=== PATIENT | female | born 1985 | race Caucasian/White ===

== ENCOUNTER 2019-02-01 11:38 | Observation (INO) ==
[2019-02-01] MEDS ORDERED: NORMAL SALINE 1,000 ML IV ONE (12:06)
--- NOTE | 2019-02-01 12:08 | ERNOTE ---
Chest Pain/Cardiac HPI Date of Service: 02/01/19 Chief Complaint: Palpitations Time Seen by Provider: 02/01/19 11:42 Source: patient, RN notes reviewed, past records Exam Limitations: no limitations Immunizations: IMMUNIZATION HX Immunizations Up to Date Yes History of Influenza Vaccine Yes Hx Pneumococcal Vaccination No Allergies/Adverse Reactions: Allergies No Known Allergies Allergy (Verified 02/01/19 11:54) Home Medications: HOME MEDICATIONS Calcium Carbonate [Tums] 500 mg PO DAILY 08/08/18 [Last Taken 01/22/19] vitamin,calcium,vvakxpwz-ddvr-fpkwa acid tablet 1 tab PO DAILY 08/09/18 [Last Taken 01/23/19 21:00] ferrous sulfate 325 mg (65 mg iron) tablet,delayed release 325 mg PO DAILY #30 tab 01/01/19 [Last Taken 01/21/19 21:00] progesterone micronized 100 mg vaginal insert 2 insert VG ONCE ea 01/01/19 [Last Taken 01/23/19 21:00] ascorbic acid (vitamin C) 500 mg capsule 500 mg PO DAILY cap 01/15/19 [Last Taken 01/21/19 21:00] docusate sodium 100 mg capsule 100 mg PO DAILY PRN 01/15/19 [Last Taken 01/21/19 21:00] Narrative: Luciana is a 33 year old female who presents to the ED for palpitations that began yesterday. She is 31 weeks . She is also having contractions. This began last week. She has been evaluated in OB for the contractions, but she reports that they became more frequent while she was on her way here. Her FHT's in triage were 145. The palpitations were fairly constant yesterday but they did not keep her awake last night. They are somewhat less frequent today. She denies any additional symptoms. Date (Duration): 01/31/19 Timing: intermittent Activities at Onset: rest Modifying Factors - Improves: Present: nothing. Absent: eating, exercise, rest Modifying Factors - Worsens: Present: nothing. Absent: breathing, exercise, position, movement, rest Associated Symptoms: Absent: headache, cough, shortness of breath, fever/chills, nausea, vomiting Prior Treatment: Reports: recently seen - by OB Review of Systems - Review of Systems Constitutional: Absent: recent illness, fever, chills, malaise EYE: Present: no symptoms reported ENT: Absent: nose congestion, sore throat Respiratory: Absent: shortness of breath, cough Cardiology: Present: palpitations. Absent: chest pain, syncope, edema Gastrointestinal/Abdominal: Absent: nausea, vomiting, diarrhea, eating less, drinking less Genitourinary: Absent: dysuria, discharge Musculoskeletal: Absent: muscle pain, joint pain Skin: Absent: rash, lesions Neurological: Absent: headache, dizziness/light-headedness Endocrine: Present: no symptoms reported Hematologic/Lymphatic: Absent: easy bruising, easy bleeding Psych: Absent: anxiety Medical History (Last Reviewed 02/01/19 @ 12:52 by Kelly العلي NP) BMI 38.0-38.9,adult (Chronic) Elevated blood pressure reading in office without diagnosis of hypertension (Acute) Asthma (Acute) Advanced maternal age affecting , antepartum Onset Date: 08/09/18 Anemia Onset Date: 01/01/19 w/ Asthma Onset Date: Unknown No hospitalizations Body piercing Onset Date: Unknown Cholelithiasis Onset Date: ~2017 Obesity Onset Date: Unknown Tattoos Onset Date: Unknown Bicipital tenosynovitis Onset Date: 08/08/17 Right shoulder Cervical dysplasia Onset Date: Unknown Elective Onset Date: ~2001 Surgical History: Surgical History (Last Reviewed 02/01/19 @ 12:52 by Kelly العلي NP) Previous section (Chronic) Hx of section Onset Date: 06/15/082007-Failure to descend. Non-reassuring tracing. Hx of cone biopsy of cervix Onset Date: Unknown Family History: Family History (Last Reviewed 02/01/19 @ 12:52 by Kelly العلي NP) Mother Melanoma Cancer Breast Father Hypertension Grandfather CVA (cerebral vascular accident) w/complications Grandfather Parkinson's disease Grandmother CHF (congestive heart failure) Social History: Preferred Language Afghan Do you have any taoist or Yes: baptist cultural preference? Smoking Status Never smoker Have you smoked in the past 12 No months Do you dip or chew tobacco No Alcohol Use none Drug Use none (Last Updated 01/29/19 @ 09:46 by Rodríguez Castelan DO) No Social History Section defined Physical Exam - Physical Exam General Appearance: Present: alert, no apparent distress, obese, other - Pleasant, talkative, appropriately dressed and groomed Head Exam: Present: normal inspection Eye Exam: Normal inspection: bilateral Ears, Nose, Throat: Present: normal ENT inspection, normal pharynx Neck: Present: normal inspection, nontender, supple. Absent: thyromegaly Respiratory: Present: no respiratory distress, normal breath sounds, no accessory muscle use, chest nontender, lungs clear Cardiovascular/Chest: Present: no murmur, normal peripheral pulses, tachycardia Gastrointestinal/Abdominal: Present: nontender, soft, distended - Gravid uterus Extremity Exam: Present: normal inspection, normal range of motion, no edema Neurological Exam: Present: alert, oriented, normal mood/affect, no motor/sensory deficits Skin Exam: Present: normal color, warm/dry Progress - Results and Orders Patient's Lab Results:: I have reviewed the patient's lab results. - Vital Signs Patient's Vital Signs:: I have reviewed the patient's vital signs. Vital Signs: Vital Signs 02/01/19 11:48 Temperature 37.2 C Pulse Rate 105 H Respiratory Rate 16 Blood Pressure 138/86 O2 Sat by Pulse Oximetry 98 - EKG EKG #1 EKG: NSR EKG read: Reviewed by me - Progress/Reassessment Chief Complaint: Palpitations Progress:: Improved Plan - Plan Plan: Heart rate has improved from 100 to 110's into 90's with a liter of IV NS. The patient continues to have mild palpitations. She still feels that her contractions are more frequent than what they had been for the past week. Dr. Castelan was contacted. The patient will be evaluated in the OB department after leaving the ED d/t her ongoing contractions and already thin cervix. Her urine did show 2+ bacteria but the specimen also contained epithelial cells. She denies any urinary symptoms and has not had any recent urinary tract infections. Treatment for this will be deferred pending culture results. Departure Clinical Impression: Palpitations - Departure Disposition: Still a patient Condition: Stable Instructions: Palpitations, [id number], Form - Excuse from Work, School, or Physical Activity Additional Instructions: Increase fluid intake Avoid caffeine, cold medications, etc. Contact your OB for any new/worsening symptoms Referrals: Rodríguez Castelan DO [Staff Physician] -
[2019-02-01 12:25] LABS: Hematocrit 31.9 % (37.0-47.0); Hemoglobin 10.2 gm/dL (12.5-16.0); Mean Cell Volume 89.9 fl (78-100); Mean Corpuscular Hemoglobin 28.7 pg (27-31); Mean Platelet Volume 10.6 fl (8-12.5); Neutrophil # 10.3 K/mm3 (1.3-6.0); Neutrophil % 79.7 % (42-75.0); Platelet Count 282 K/mm3 (150-450); Red Blood Count 3.55 M/mm3 (4.2-5.4); Red Cell Distribution Width 14.3 % (11.5-14.0)
[2019-02-01 12:36] LABS: Urine Appearance Slightly Cloudy (CLEAR); Urine Bilirubin Negative (NEGATIVE); Urine Blood Negative /ul (NEGATIVE); Urine Color Yellow; Urine Ketone Negative (NEGATIVE); Urine Nitrite Negative (NEGATIVE); Urine Protein Negative (NEGATIVE); Urine Specific Gravity 1.025 SP.GR. (1.005-1.010); Urine Urobilinogen Normal (NORMAL)
[2019-02-01 12:37] LABS: Urine Amorphous Sediment Moderate - 2+ (NONE-FEW); Urine Bacteria 2+; Urine RBC 0-5 /hpf (0-5)
[2019-02-01 12:43] LABS: Albumin * 2.5 gm/dl (3.4-5.0); Anion Gap 16.7 mmol/L (6.8-13.8); BUN/Creatinine Ratio 8.5 (9.0-21.6); Bilirubin, Total 0.2 mg/dL (0.0-1.1); Ca. Corrected For Albumin 9.4 mg/dL (8.4-10.2); Calcium * 8.5 mg/dL (7.9-10.9); Carbon Dioxide 20.8 mmol/L (24-32.6); Potassium 3.5 mmol/L (3.4-4.6); T4 Free * 0.72 ng/dL (0.76-1.46); TSH * 2.418 uIU/mL (0.358-3.74); Total Protein 6.4 gm/dL (6.2-8.2)
--- NOTE | 2019-02-01 16:39 | HP ---
Chief Complaint - Chief Complaint Date of Service: 02/01/19 Time of Service: 16:30 Chief Complaint: contractions History of Present Illness: The patient reports contractions that are worsening. She denies vaginal bleeding or loss of fluid. Fetus is active. Medical History (Last Reviewed 02/01/19 @ 12:52 by Kelly العلي NP) BMI 38.0-38.9,adult (Chronic) Elevated blood pressure reading in office without diagnosis of hypertension (Acute) Asthma (Acute) Advanced maternal age affecting , antepartum Onset Date: 08/09/18 Anemia Onset Date: 01/01/19 w/ Asthma Onset Date: Unknown No hospitalizations Body piercing Onset Date: Unknown Cholelithiasis Onset Date: ~2017 Obesity Onset Date: Unknown Tattoos Onset Date: Unknown Bicipital tenosynovitis Onset Date: 08/08/17 Right shoulder Cervical dysplasia Onset Date: Unknown Elective Onset Date: ~2001 Surgical History: Surgical History (Last Reviewed 02/01/19 @ 12:52 by Kelly العلي NP) Previous section (Chronic) Hx of section Onset Date: 06/15/082007-Failure to descend. Non-reassuring tracing. Hx of cone biopsy of cervix Onset Date: Unknown Family History: Family History (Last Reviewed 02/01/19 @ 12:52 by Kelly العلي NP) Mother Melanoma Cancer Breast Father Hypertension Grandfather CVA (cerebral vascular accident) w/complications Grandfather Parkinson's disease Grandmother CHF (congestive heart failure) Social History: Preferred Language Uzbek Do you have any anglican or Yes: yazdanism cultural preference? Smoking Status Never smoker Have you smoked in the past 12 No months Do you dip or chew tobacco No Alcohol Use none Drug Use none (Last Updated 01/29/19 @ 09:46 by Rodríguez Castelan DO) No Social History Section defined Review Of Systems (GEN) - Review of Systems Generalized/Overall Review: Present: No Symptoms Reported Misc: All systems neg except as marked Immunizations: IMMUNIZATION HX Immunizations Up to Date Yes History of Influenza Vaccine Yes Hx Pneumococcal Vaccination No Allergies/Adverse Reactions: Allergies Allergy/AdvReac Type Severity Reaction Status Date / Time No Known Allergies Allergy Verified 02/01/19 11:54 Home Medications: HOME MEDICATIONS Calcium Carbonate [Tums] 500 mg PO DAILY 10/09/18 [Last Taken 01/22/19] vitamin,calcium,qvruuqar-dqpu-ixmim acid tablet 1 tab PO DAILY 08/09/18 [Last Taken 01/23/19 21:00] ferrous sulfate 325 mg (65 mg iron) tablet,delayed release 325 mg PO DAILY #30 tab 01/01/19 [Last Taken 01/21/19 21:00] progesterone micronized 100 mg vaginal insert 2 insert VG ONCE ea 01/01/19 [Last Taken 01/23/19 21:00] ascorbic acid (vitamin C) 500 mg capsule 500 mg PO DAILY cap 01/15/19 [Last Taken 01/21/19 21:00] docusate sodium 100 mg capsule 100 mg PO DAILY PRN 01/15/19 [Last Taken 01/21/19 21:00] Exam - Exam Vital Signs: Vital Signs - Last Taken Temp 36.6 C 02/01/19 15:19 Pulse 101 H 02/01/19 15:19 Resp 16 02/01/19 15:19 BP 137/70 02/01/19 15:19 Pulse Ox 98 02/01/19 15:19 Constitutional: Present: Alert, Oriented x3, Cooperative, No distress Respiratory: Present: lungs clear, normal breath sounds Cardiovascular/Chest: Present: no murmur, other - irregular Abdomen: Present: soft, nontender, nondistended Extremity: Present: non-tender, no calf tenderness Skin Exam: Present: normal color, warm/dry, no cyanosis Appearance: Present: appropriate appearance Eye contact: Present: cooperative Thoughts: Present: normal thought pattern Diagnostic Studies: Abnormal Lab Results 02/01/19 02/01/19 02/01/19 Range/Units 12:15 12:15 12:31 WBC 13.0 H (4.0-10.5) K/mm3 RBC 3.55 L (4.2-5.4) M/mm3 Hgb 10.2 L (12.5-16.0) gm/dL Hct 31.9 L (37.0-47.0) % RDW 14.3 H (11.5-14.0) % Immature Gran % (Auto) 0.50 H (0.001-0.429) % Immature Gran # (Auto) 0.06 H (0.000-0.0310) K/mm3 Neutrophils % 79.7 H (42-75.0) % Lymphocytes % 14.4 L (20-51) % Neutrophils # 10.3 H (1.3-6.0) K/mm3 Carbon Dioxide 20.8 L (24-32.6) mmol/L Anion Gap 16.7 H (6.8-13.8) mmol/L Est GFR (Non-Af Amer) 160 H (60-130) mL/min BUN/Creatinine Ratio 8.5 L (9.0-21.6) Random Glucose 120 H (70-110) mg/dL Albumin 2.5 L (3.4-5.0) gm/dl Free T4 0.72 L (0.76-1.46) ng/dL Ur Leukocyte Esterase 25 H (NEGATIVE) /ul Urine WBC 5-10 H (0-5) /hpf Ur Epithelial Cells 5-10 H (0-5) /hpf Amorphous Sediment Moderate - 2+ H (NONE-FEW) Urine Bacteria 2+ H (NONE) Coarse Granular Casts 5-10 H (NONE) /LPF Laboratory Results WBC 13.0 K/mm3 (4.0-10.5) H 02/01/19 12:15 RBC 3.55 M/mm3 (4.2-5.4) L 02/01/19 12:15 Hgb 10.2 gm/dL (12.5-16.0) L 02/01/19 12:15 Hct 31.9 % (37.0-47.0) L 02/01/19 12:15 MCV 89.9 fl (78-100) 02/01/19 12:15 MCH 28.7 pg (27-31) 02/01/19 12:15 MCHC 32.0 g/dl (32-36) 02/01/19 12:15 RDW 14.3 % (11.5-14.0) H 02/01/19 12:15 Plt Count 282 K/mm3 (150-450) 02/01/19 12:15 MPV 10.6 fl (8-12.5) 02/01/19 12:15 Immature Gran % (Auto) 0.50 % (0.001-0.429) H 02/01/19 12:15 Immature Gran # (Auto) 0.06 K/mm3 (0.000-0.0310) H 02/01/19 12:15 Neutrophils % 79.7 % (42-75.0) H 02/01/19 12:15 Lymphocytes % 14.4 % (20-51) L 02/01/19 12:15 Monocytes % 3.6 % (0.0-9) 02/01/19 12:15 Eosinophils % 1.6 % (0.0-3.0) 02/01/19 12:15 Basophils % 0.2 % (0.0-1.0) 02/01/19 12:15 Nucleated RBC % 0.0 k/mm3 (0-1) 02/01/19 12:15 Neutrophils # 10.3 K/mm3 (1.3-6.0) H 02/01/19 12:15 Lymphocytes # 1.86 k/mm3 (1.5-3.5) 02/01/19 12:15 Monocytes # 0.5 k/mm3 (0.0-1.0) 02/01/19 12:15 Eosinophils # 0.2 k/mm3 (0.0-0.7) 02/01/19 12:15 Absolute Basophils 0.0 k/mm3 (0.0-0.1) 02/01/19 12:15 Sodium 138 mmol/L (132-142) 02/01/19 12:15 Plasma Sodium 138 mmol/L (130-142) 02/01/19 12:15 Potassium 3.5 mmol/L (3.4-4.6) 02/01/19 12:15 Chloride 104 mmol/L (97-106) 02/01/19 12:15 Carbon Dioxide 20.8 mmol/L (24-32.6) L 02/01/19 12:15 Anion Gap 16.7 mmol/L (6.8-13.8) H 02/01/19 12:15 BUN 4 mg/dL (3-23) 02/01/19 12:15 Creatinine 0.47 mg/dL (0.4-1.4) 02/01/19 12:15 Est GFR (Non-Af Amer) 160 mL/min (60-130) H 02/01/19 12:15 BUN/Creatinine Ratio 8.5 (9.0-21.6) L 02/01/19 12:15 Random Glucose 120 mg/dL (70-110) H 02/01/19 12:15 Calcium 8.5 mg/dL (7.9-10.9) 02/01/19 12:15 Calcium Adj for Albumin 9.4 mg/dL (8.4-10.2) 02/01/19 12:15 Total Bilirubin 0.2 mg/dL (0.0-1.1) 02/01/19 12:15 AST 12 U/L (0-48) 02/01/19 12:15 ALT 21 U/L (19-67) 02/01/19 12:15 Alkaline Phosphatase 89 U/L (50-170) 02/01/19 12:15 Total Protein 6.4 gm/dL (6.2-8.2) 02/01/19 12:15 Albumin 2.5 gm/dl (3.4-5.0) L 02/01/19 12:15 TSH 2.418 uIU/mL (0.358-3.74) 02/01/19 12:15 Free T4 0.72 ng/dL (0.76-1.46) L 02/01/19 12:15 Urine Color Yellow 02/01/19 12:31 Urine Appearance Slightly cloudy (CLEAR) 02/01/19 12:31 Urine pH 6.0 pH (5.0-7.0) 02/01/19 12:31 Ur Specific [place] 1.025 SP.GR. (1.005-1.010) 02/01/19 12:31 Urine Protein Negative mg/dL (NEGATIVE) 02/01/19 12:31 Urine Glucose (UA) Negative mg/dL (NEGATIVE) 02/01/19 12:31 Urine Ketones Negative mg/dL (NEGATIVE) 02/01/19 12:31 Urine Blood Negative /ul (NEGATIVE) 02/01/19 12:31 Urine Nitrate Negative (NEGATIVE) 02/01/19 12:31 Urine Bilirubin Negative mg/dl (NEGATIVE) 02/01/19 12:31 Urine Urobilinogen Normal EU/dl (NORMAL) 02/01/19 12:31 Ur Leukocyte Esterase 25 /ul (NEGATIVE) H 02/01/19 12:31 Urine RBC 0-5 /hpf (0-5) 02/01/19 12:31 Urine WBC 5-10 /hpf (0-5) H 02/01/19 12:31 Ur Epithelial Cells 5-10 /hpf (0-5) H 02/01/19 12:31 Amorphous Sediment Moderate - 2+ (NONE-FEW) H 02/01/19 12:31 Urine Bacteria 2+ (NONE) H 02/01/19 12:31 Coarse Granular Casts 5-10 /LPF (NONE) H 02/01/19 12:31 Urine Culture Comments Culture to follow 02/01/19 12:31 Assessment/Plan - Narrative Narrative: 33 yo @ 31w 2d She was evaluated by the emergency department for palpitations and had a normal EKG. The patient reports her contractions are becoming closer together so will transfer to [place].
--- NOTE | 2019-02-01 17:05 | DS ---
(1) contractions Problem: Acute Procedures Performed: none Results and Findings: Lab Pending Results 02/01/19 12:15: WBC 13.0 H, RBC 3.55 L, Hgb 10.2 L, Hct 31.9 L, MCV 89.9, MCH 28.7, MCHC 32.0, RDW 14.3 H, Plt Count 282, MPV 10.6, Immature Gran % (Auto) 0.5 0 H, Immature Gran # (Auto) 0.06 H, Neutrophils % 79.7 H, Lymphocytes % 14.4 L, Monocytes % 3.6, Eosinophils % 1.6, Basophils % 0.2, Nucleated RBC % 0.0, Neutrophils # 10.3 H, Lymphocytes # 1.86, Monocytes # 0.5, Eosinophils # 0.2, Absolute Basophils 0.0 02/01/19 12:15: Sodium 138, Plasma Sodium 138, Potassium 3.5, Chloride 104, Carbon Dioxide 20.8 L, Anion Gap 16.7 H, BUN 4, Creatinine 0.47, Est GFR (Non-Af Amer) 160 H, BUN/Creatinine Ratio 8.5 L, Random Glucose 120 H, Calcium 8.5, Calcium Adj for Albumin 9.4, Total Bilirubin 0.2, AST 12, ALT 21, Alkaline Phosphatase 89, Total Protein 6.4, Albumin 2.5 L, TSH 2.418, Free T4 0.72 L 02/01/19 12:31: Urine Color Yellow, Urine Appearance Slightly cloudy, Urine pH 6.0, Ur Specific [place] 1.025, Urine Protein Negative, Urine Glucose (UA) Negative, Urine Ketones Negative, Urine Blood Negative, Urine Nitrate Negative, Urine Bilirubin Negative, Urine Urobilinogen Normal, Ur Leukocyte Esterase 25 H, Urine RBC 0-5, Urine WBC 5-10 H, Ur Epithelial Cells 5-10 H, Amorphous Sediment Moderate - 2+ H, Urine Bacteria 2+ H, Coarse Granular Casts 5-10 H, Urine Culture Comments Culture to follow Discharge [facility]: [facility] Disposition: Short Term Hospital Inpatient Condition: Stable Discharge Activity: Activity as tolerated Discharge Diet: General/regular food Referrals: Rodríguez Castelan DO [Staff Physician] - Problem Oriented Discharge Instructions to Patient/Family: Palpitations, [id number], Form - Excuse from Work, School, or Physical Activity Additional Patient Instructions (free text): Increase fluid intake Avoid caffeine, cold medications, etc. Contact your OB for any new/worsening symptoms Complete Home Medications List: Complete Home Medication List: Calcium Carbonate [Tums] 500 mg PO DAILY 08/08/18 vitamin,calcium,bdlkugny-ccuv-byqrg acid tablet 1 tab PO DAILY 08/09/18 ferrous sulfate 325 mg (65 mg iron) tablet,delayed release 325 mg PO DAILY #30 tab 01/01/19 progesterone micronized 100 mg vaginal insert 2 insert VG ONCE ea 01/01/19 ascorbic acid (vitamin C) 500 mg capsule 500 mg PO DAILY cap 01/15/19 docusate sodium 100 mg capsule 100 mg PO DAILY PRN 01/15/19
[2019-02-01 17:11] VITALS: BP 140/59
[2019-02-01] MEDS ORDERED: NIFEdipine 10 MG CAPSULE PO ONE (17:15)
[2019-02-01] MEDS ORDERED: BETAMETHASONE ACETATE,SOD PHOS 6 MG/ML VIAL IM ONE (18:00)
== END 2019-02-01 18:15 | disposition home or self-care (01) ==
LOC: ER 11:38 → OB 14:03 → OBCLINIC 14:03
PROVIDERS: ADMIT Obstetrics & Gynecology; ATTEND Obstetrics & Gynecology
CPT/HCPCS: 36415; 59025; 80053; 81001; 84439; 84443; 85025; 87086; 93005; 96360; 99285; G0378

== ENCOUNTER 2019-03-05 21:30 | Inpatient (IN) ==
[2019-03-05] MEDS: RINGER'S SOLUTION,LACTATED 1,000 ML IV PRN ×2 (21:56→23:08)
[2019-03-05] MEDS ORDERED: OXYTOCIN 20 UNITS in RINGER'S SOLUTION,LACTATED 1,000 ML IV ONE (23:19)
--- NOTE | 2019-03-05 23:30 | HP ---
Chief Complaint - Chief Complaint Date of Service: 03/05/19 Time of Service: 23:23 Chief Complaint: contractions History of Present Illness: 34 yo at 35 6/7 wks presents to L&D complaining of increasing frequency and intensity of contractions this evening with increased vaginal pressure. This complicated by anemia, AMA, asthma, PTL, shortened and now dilated cervix, prior c/s, and morbid obesity. Patient received 2 courses of BTMZ, most recent one 02/01 - 02/02. Rh positive Rubella immune GBS negative. Medical History (Updated 03/01/19 @ 01:23 by Rodríguez Castelan DO) BMI 38.0-38.9,adult (Chronic) Elevated blood pressure reading in office without diagnosis of hypertension (Acute) Asthma (Chronic) Advanced maternal age affecting , antepartum Onset Date: 08/09/18 Anemia Onset Date: 01/01/19 w/ Asthma Onset Date: Unknown No hospitalizations Heart palpitations Onset Date: 01/2019 31 weeks preg Body piercing Onset Date: Unknown Cholelithiasis Onset Date: ~2017 Obesity Onset Date: Unknown Tattoos Onset Date: Unknown Bicipital tenosynovitis Onset Date: 08/08/17 Right shoulder Cervical dysplasia Onset Date: Unknown Elective Onset Date: ~2001 Surgical History: Surgical History (Updated 02/01/19 @ 17:05 by Sofia Smith MD) Previous section (Chronic) Hx of section Onset Date: 06/15/082007-Failure to descend. Non-reassuring tracing. Hx of cone biopsy of cervix Onset Date: Unknown Family History: Family History (Updated 08/09/18 @ 13:57 by Mckenna Gold RN) Mother Melanoma Cancer Breast Father Hypertension Grandfather CVA (cerebral vascular accident) w/complications Grandfather Parkinson's disease Grandmother CHF (congestive heart failure) Social History: Preferred Language Spanish Smoking Status Never smoker (Last Updated 03/05/19 @ 12:21 by Rodríguez Castelan DO) No Social History Section defined Review Of Systems (GEN) - Review of Systems Generalized/Overall Review: Present: No Symptoms Reported EENTM: Present: No Symptoms Reported Respiratory: Present: No Symptoms Reported Cardiac: Present: No Symptoms Reported Abdominal: Present: Other - contractions Genitourinary: Present: Other - vaginal pressure Musculoskeletal: Present: No Symptoms Reported Neurological: Present: No Symptoms Reported Skin: Present: No Symptoms Reported Endocrine: Present: No Symptoms Reported Immunizations: IMMUNIZATION HX Immunizations Up to Date Yes History of Influenza Vaccine Yes Hx Pneumococcal Vaccination No Allergies/Adverse Reactions: Allergies Allergy/AdvReac Type Severity Reaction Status Date / Time No Known Allergies Allergy Verified 03/05/19 22:01 Home Medications: HOME MEDICATIONS Calcium Carbonate [Tums] 500 mg PO DAILY 08/08/18 [Last Taken 02/16/19 20:00] vitamin,calcium,zsabjubr-oeqb-aqnne acid tablet 1 tab PO DAILY 08/09/18 [Last Taken 02/28/19 21:00] ferrous sulfate 325 mg (65 mg iron) tablet,delayed release 325 mg PO DAILY #30 tab 01/01/19 [Last Taken 02/27/19 08:00] progesterone micronized 100 mg vaginal insert 2 insert VG DAILY ea 01/01/19 [Last Taken 02/26/19 21:00] ascorbic acid (vitamin C) 500 mg capsule 500 mg PO DAILY cap 01/15/19 [Last Taken 02/27/19 08:00] docusate sodium 100 mg capsule 100 mg PO DAILY PRN 01/15/19 [Last Taken 01/21/19 21:00] Exam - Exam Vital Signs: Vital Signs - Last Taken Temp 36.7 C 03/05/19 22:23 Pulse 118 H 03/05/19 22:23 Resp 16 03/05/19 22:23 BP 140/83 H 03/05/19 22:23 Pulse Ox 98 03/05/19 22:23 Constitutional: Present: Alert, Oriented x3, Cooperative, Mild distress - due to pain of contractions ENT Exam: Present: hearing grossly normal Breasts: Present: Exam deferred Respiratory: Present: lungs clear, no respiratory distress Cardiovascular/Chest: Present: normal peripheral pulses, tachycardia Abdomen: Present: soft, nontender, no rebound tenderness, other - gravid /Rectal: Present: Other - 4/90/-2 Extremity: Present: no calf tenderness, lower extremity edema - 1+ Neurologic: Present: alert, normal mood/affect, oriented x 3 Appearance: Present: appropriate appearance, appropriate insight Eye contact: Present: cooperative, good eye contact Thoughts: Present: normal thought pattern Assessment/Plan - Assessment/Plan (1) labor in third trimester Assessment: Admit for Repeat LTCS with b/l salpingectomy. All questions answered. Will proceed with surgery once crew arrives. Problem: Acute Qualifiers: Fetus number: single or unspecified fetus (2) Advanced maternal age (AMA) in Problem: Acute (3) Anemia Problem: Acute Qualifiers: Anemia type: iron deficiency Iron deficiency anemia type: inadequate dietary iron intake Qualified Code(s): D50.8 - Other iron deficiency anemias (4) Morbid obesity Problem: Chronic (5) Asthma Problem: Chronic Qualifiers: Asthma severity: mild Asthma persistence: intermittent Asthma complication type: uncomplicated Qualified Code(s): J45.20 - Mild intermittent asthma, uncomplicated (6) Request for sterilization Problem: Acute (7) Previous section Problem: Chronic
--- NOTE | 2019-03-05 23:38 | ANES ---
Anesthesia Pre Procedure Eval Vitals/Labs: Last Vital Signs Temp 36.7 C 03/05/19 22:23 Pulse 118 H 03/05/19 22:23 Resp 16 03/05/19 22:23 BP 140/83 H 03/05/19 22:23 Pulse Ox 98 03/05/19 22:23 HOME MEDICATIONS Calcium Carbonate [Tums] 500 mg PO DAILY 08/08/18 [Last Taken 02/16/19 20:00] vitamin,calcium,wrxcioxj-qgzv-yrxhe acid tablet 1 tab PO DAILY 08/09/18 [Last Taken 02/28/19 21:00] ferrous sulfate 325 mg (65 mg iron) tablet,delayed release 325 mg PO DAILY #30 tab 01/01/19 [Last Taken 02/27/19 08:00] progesterone micronized 100 mg vaginal insert 2 insert VG DAILY ea 01/01/19 [Last Taken 02/26/19 21:00] ascorbic acid (vitamin C) 500 mg capsule 500 mg PO DAILY cap 01/15/19 [Last Taken 02/27/19 08:00] docusate sodium 100 mg capsule 100 mg PO DAILY PRN 01/15/19 [Last Taken 01/21/19 21:00] Allergies/Adverse Reactions: Allergies Allergy/AdvReac Type Severity Reaction Status Date / Time No Known Allergies Allergy Verified 03/05/19 22:01 - Planned Procedure Planned Procedure: C/S Medication List Reviewed:: Yes Allergies Verified: Yes Medical History (Updated 03/05/19 @ 23:30 by Rodríguez Castelan DO) BMI 38.0-38.9,adult (Chronic) Elevated blood pressure reading in office without diagnosis of hypertension (Acute) Asthma (Chronic) Advanced maternal age affecting , antepartum Onset Date: 08/09/18 Anemia Onset Date: 01/01/19 w/ Asthma Onset Date: Unknown No hospitalizations Heart palpitations Onset Date: 01/2019 31 weeks preg Body piercing Onset Date: Unknown Cholelithiasis Onset Date: ~2017 Obesity Onset Date: Unknown Tattoos Onset Date: Unknown Bicipital tenosynovitis Onset Date: 08/08/17 Right shoulder Cervical dysplasia Onset Date: Unknown Elective Onset Date: ~2001 Surgical History (Updated 02/01/19 @ 17:05 by Sofia Smith MD) Previous section (Chronic) Hx of section Onset Date: 06/15/082007-Failure to descend. Non-reassuring tracing. Hx of cone biopsy of cervix Onset Date: Unknown Family History (Updated 08/09/18 @ 13:57 by Mckenna Gold RN) Mother Melanoma Cancer Breast Father Hypertension Grandfather CVA (cerebral vascular accident) w/complications Grandfather Parkinson's disease Grandmother CHF (congestive heart failure) - Family Anesthesia History Family History:: no untoward family reactions to anesthesia, no familial bleeding tendencies, no family history of clotting disorders, no family history of premature - Airway/Neck/Teeth Within Normal Limits:: Yes Teeth Condition: intact Mallampatti Score: 2 Thyromental (T-M) distance: > 6 cm Mandibulo Hyoid distance: > 3 cm - Respiratory Respiratory History: asthma Respiratory Physical: lungs clear Smoking Status: Never smoker Discussed smoking cessation including day of surgery: No Sleep Apnea currently treated: No Sleep Apnea by current assessment: No Discussed Risks/Treatment of SHANIA: No - Cardiovascular Tolerate Activity: Good Heart Sounds: S1 & S2, Regular - Anesthesia Assessment and Plan ASA Class: PS, II, E Anesthesia Type Plan: Block - Bilateral TAP blocks for postop analgesia, Spinal
[2019-03-05] MEDS ORDERED: ceFAZolin SODIUM/DEXTROSE,ISO 2 GM/50 ML BAG IV ONE (23:45)
[2019-03-06] MEDS: RINGER'S SOLUTION,LACTATED 1,000 ML IV PRN (00:30)
[2019-03-06] MEDS ORDERED: SENNOSIDES 8.6 MG TABLET PO PRN (01:54)
[2019-03-06] MEDS ORDERED: SIMETHICONE 80 MG TAB.CHEW PO PRN (01:54)
[2019-03-06] MEDS ORDERED: BISACODYL 10 MG SUPP.RECT RC PRN (01:54)
[2019-03-06] MEDS ORDERED: ONDANSETRON HCL/PF 2 MG/ML VIAL IV PRN (01:54)
[2019-03-06] MEDS ORDERED: DOCUSATE SODIUM 100 MG CAPSULE PO PRN (01:55)
--- NOTE | 2019-03-06 02:02 | ANES ---
Post Anesthesia Discharge - Transfer of Care Transfer of Care handoff given to nurse: Yes - Discharge from PACU Discharge from PACU when meets criteria: Yes - Discharge to ASU Discharge to ASU-no complications/pt stable: Yes
--- NOTE | 2019-03-06 02:03 | OR ---
Operative Report - Dictated Report Narrative: Indication: 34 year old 3 para 1 at 36 weeks gestation age and prior section presents to labor and delivery in labor. status: Planned Pre Operative Diagnosis: 36 week intrauterine . Prior section. Morbid obesity. Desires permanent sterilization via bilateral salpingectomy. Post Operative Diagnosis: Same. Procedure: Repeat low transverse section. Bilateral salpingectomy Surgeon: Sadiq Castelan DO Film Laboratory Technician: OR Staff Anesthesia: Spinal, TAP block Estimated Blood Loss: 400 mL Urine Output: 200 mL clear urine Fluids Replacement: 2000 mL of crystalloid Drains: Delgadillo to gravity Surgical Complications: None Specimens: Placenta to pathology Findings: Male born at 0030 on 03/06/2021 with Apgars 3, 7, 7, weighing 3071 g in cephalic presentation. Normal uterus, tubes, ovaries Technique: The patient was taken to the operating room and placed in dorsal supine position with a left lateral tilt. After adequate spinal anesthesia, delgadillo catheter inserted, SCDs placed, and 2 g of Ancef given preoperatively, the abdominal cavity was entered using sharp and blunt dissection. Two rolled laps were placed in the pericolic gutters on either side of the uterus. A transverse incision was made in the lower uterine segment and extended laterally and upwardly with digital traction. Clear fluid was noted upon amniotomy. The infant was delivered easily. The cord was clamped and cut and infant was handed off to awaiting manager ccu. The placenta was allowed to deliver spontaneously. The uterus was cleared of clot and debris. Uterine incision was closed with 0 Vicryl using a running stitch. A second imbricating layer was placed. Excellent hemostasis was noted. The rolled laps were removed from the abdominal cavitiy. The right fallopian tube was identified and followed out to the fimbriated end. The mesosalpinx and proximal end of the fallopian tube approximately 2 cm from the cornual region were coagulated with bipolar forceps, transected and the tube was removed. The exact same was done on the patient's left side. However, the distal end of the fallopian tube was adherent to the uterine sidewall deep in the pelvis. A deep vascular branch of the mesosalpinx was bleeding this area was grasped with a Margot Guillermo stitch tied. Excellent hemostasis was noted. The peritoneum was closed with a running 3-0 Monocryl. The same suture was used to approximate the rectus and pyramidalis muscles. The fascia was closed with a running 0 Vicryl. The subcutaneous layer was closed with a running 3-0 Monocryl. The same suture was used to approximate the subdermal layer. The skin was closed with a running 4-0 Monocryl and Dermabond. Sponge, lap, needle, and instrument count were correct x 2. Disposition: To post anesthesia care unit in good condition History for MU Definition: * The number of deliveries resulting in a live the patient experienced prior to current hospitalization * The previous delivery of live twins or any live multiple gestation is considered one live event. *If primagravida or nulliparous is documented select zero for the number of previous live births. Live Events: 1
--- NOTE | 2019-03-06 02:05 | ANES ---
Post Anesthesia Assessment - Vital Signs Vitals: Last Vital Signs Temp 36.9 C 03/06/19 02:00 Pulse 102 H 03/06/19 02:00 Resp 20 03/06/19 02:00 BP 125/61 03/06/19 02:00 Pulse Ox 97 03/06/19 02:00 Airway Patency: Normal - Mental Status Level Of Consciousness: Awake - Pain Level Pain Score: 7 - N/V Assessment Nausea/Vomiting Presence: None Dehydration:: No
--- NOTE | 2019-03-06 02:05 | ANES ---
Anesthesia Procedure Note Procedure Note: ANESTHESIA PROCEDURE NOTE Date of Procedure: 03/06/2019. Time of procedure: 0150. Performed by: Wyatt Connors CRNA Gas Welding Machine Operator: None. Preprocedure diagnosis: Repeat . Post procedure diagnosis: Same. Procedure: Bilateral ultrasound-guided transversus abdominis plane block for postop analgesia. Indications: The patient is a 34 -year-old female post section. Findings: See below. Details of the procedure: ChloraPrep was used on the patient's abdomen and the procedure was performed under sterile technique. The right abdominal fascial layer between the internal oblique muscle and the transversus abdominis muscles was identified under ultrasound guidance. A 21-gauge 4 inch block needle was inserted under ultrasound guidance to the target fascial plane. 15 mL's of 0.5% bupivacaine plus epinephrine 1:200,000 was injected after negative aspiration for blood. The needle was removed intact and the procedure was then repeated at the left side. No complications were noted. The images were retained in the hospital medical database . EBL: Minimal. Fluids: N/A. Specimen: N/A. Post procedure condition: The patient tolerated the procedure well. No complications were noted. Thank you for this consultation. Wyatt Connors CRNA
[2019-03-06] MEDS: oxyCODONE HCL/ACETAMINOPHEN 1 TAB TABLET PO PRN ×5 (02:20→22:44)
[2019-03-06] MEDS: IBUPROFEN 800 MG TABLET PO PRN ×4 (03:24→22:44)
[2019-03-06 05:44] LABS: Cocaine Ur Negative (NEGATIVE); Urine Barbiturate Negative (NEGATIVE); Urine Benzodiazepines Negative (NEGATIVE); Urine Opiates Negative (NEGATIVE); Urine PCP Negative (NEGATIVE); Urine THC Negative (NEGATIVE)
[2019-03-06] MEDS: PRENATAL VITS96/IRON FUM/FOLIC 1 TAB TABLET PO SCH (09:44)
[2019-03-06] MEDS: DOCUSATE SODIUM 100 MG CAPSULE PO SCH ×2 (09:44→19:46)
[2019-03-06] MEDS: FERROUS SULFATE 325 MG TABLET PO SCH (09:44)
[2019-03-06] MEDS: ASCORBIC ACID 500 MG TABLET PO SCH (09:46)
[2019-03-06] MEDS: ENOXAPARIN SODIUM 40 MG/0.4 ML SYRG SC SCH (09:47)
[2019-03-06] MEDS: CALCIUM CARBONATE 500 MG TAB.CHEW PO SCH (09:51)
[2019-03-07] MEDS: DOCUSATE SODIUM 100 MG CAPSULE PO SCH ×3 (02:10→20:39)
[2019-03-07] MEDS: oxyCODONE HCL/ACETAMINOPHEN 1 TAB TABLET PO PRN ×5 (02:11→23:55)
[2019-03-07] MEDS: IBUPROFEN 800 MG TABLET PO PRN ×3 (06:42→20:39)
[2019-03-07] MEDS: CALCIUM CARBONATE 500 MG TAB.CHEW PO SCH (09:00)
[2019-03-07] MEDS: ASCORBIC ACID 500 MG TABLET PO SCH (09:21)
[2019-03-07] MEDS: PRENATAL VITS96/IRON FUM/FOLIC 1 TAB TABLET PO SCH (09:21)
[2019-03-07] MEDS: FERROUS SULFATE 325 MG TABLET PO SCH (09:21)
[2019-03-07] MEDS: ENOXAPARIN SODIUM 40 MG/0.4 ML SYRG SC SCH (09:21)
--- NOTE | 2019-03-07 10:21 | PN ---
Subjective - Date and Time Seen Date: 03/07/19 Time: 10:19 Objective - Vitals Vitals: Last Vital Signs Temp 36.1 C 03/07/19 06:55 Pulse 84 03/07/19 06:55 Resp 18 03/07/19 06:55 BP 112/56 03/07/19 06:55 Pulse Ox 99 03/07/19 06:55 Patient denies complaints. Ambulating fairly well. Tolerating regular diet. Pain well controlled. Lochia wnl. Abdomen - soft, appropriately tender Incision - clean, dry, intact Uterus - firm, at umbilicus -2 No calf tenderness Impression: Post op day #2 s/p repeat section. Plan: Continue routine post-operative/ care. Increase activity today. Cauti Physician Documentation - Urinary Catheter Management Urethral (Porter) Date of Insertion: 03/06/19 Time of Insertion: 00:18 Date of Removal: 03/06/19 Time of Removal: 13:00 Assessment/Plan - Problems/Diagnosis (1) labor in third trimester Problem: Acute Qualifiers: Fetus number: single or unspecified fetus (2) Advanced maternal age (AMA) in Problem: Acute (3) Anemia Problem: Acute Qualifiers: Anemia type: iron deficiency Iron deficiency anemia type: inadequate dietary iron intake Qualified Code(s): D50.8 - Other iron deficiency anemias (4) Morbid obesity Problem: Chronic (5) Asthma Problem: Chronic Qualifiers: Asthma severity: mild Asthma persistence: intermittent Asthma complication type: uncomplicated Qualified Code(s): J45.20 - Mild intermittent asthma, uncomplicated (6) Request for sterilization Problem: Acute (7) Previous section Problem: Chronic
[2019-03-08] MEDS: IBUPROFEN 800 MG TABLET PO PRN (05:23)
[2019-03-08 08:31] VITALS: BP 148/69
[2019-03-08] MEDS: ASCORBIC ACID 500 MG TABLET PO SCH (09:04)
[2019-03-08] MEDS: FERROUS SULFATE 325 MG TABLET PO SCH (09:04)
[2019-03-08] MEDS: PRENATAL VITS96/IRON FUM/FOLIC 1 TAB TABLET PO SCH (09:04)
[2019-03-08] MEDS: ENOXAPARIN SODIUM 40 MG/0.4 ML SYRG SC SCH (09:04)
[2019-03-08] MEDS: DOCUSATE SODIUM 100 MG CAPSULE PO SCH (09:04)
[2019-03-08] MEDS: CALCIUM CARBONATE 500 MG TAB.CHEW PO SCH (09:05)
--- NOTE | 2019-03-08 09:16 | PN ---
Subjective - Date and Time Seen Date: 03/08/19 Time: 09:14 Objective - Vitals Vitals: Last Vital Signs Temp 36.3 C 03/08/19 07:40 Pulse 86 03/08/19 07:40 Resp 18 03/08/19 07:40 BP 148/69 H 03/08/19 08:30 Pulse Ox 97 03/08/19 07:40 Patient denies complaints. Ambulating well. Tolerating regular diet. Pain well controlled. Denies headache, visual changes, or epigastric pain Lochia wnl. DTR-2/4, no clonus, minimal pedal edema Abdomen - soft, appropriately tender Incision - clean, dry, intact Uterus - firm, at umbilicus -2 No calf tenderness Impression: Post op day #2 s/p repeat section. Bilateral salpingectomy. Elevated blood pressures without symptoms of preeclampsia. Plan: Continue routine post-operative/ care. Early discharge home today due to baby transferred to [facility]. Preeclampsia precautions. Follow-up blood pressure check and none 3-4 days. Cauti Physician Documentation - Urinary Catheter Management Urethral (Porter) Date of Insertion: 03/06/19 Time of Insertion: 00:18 Date of Removal: 03/06/19 Time of Removal: 13:00 Assessment/Plan - Problems/Diagnosis (1) labor in third trimester Problem: Acute Qualifiers: Fetus number: single or unspecified fetus (2) Advanced maternal age (AMA) in Problem: Acute (3) Anemia Problem: Acute Qualifiers: Anemia type: iron deficiency Iron deficiency anemia type: inadequate dietary iron intake Qualified Code(s): D50.8 - Other iron deficiency anemias (4) Morbid obesity Problem: Chronic (5) Asthma Problem: Chronic Qualifiers: Asthma severity: mild Asthma persistence: intermittent Asthma complication type: uncomplicated Qualified Code(s): J45.20 - Mild intermittent asthma, uncomplicated (6) Request for sterilization Problem: Acute (7) Previous section Problem: Deleted
[2019-03-08] MEDS: oxyCODONE HCL/ACETAMINOPHEN 1 TAB TABLET PO PRN (10:53)
== END 2019-03-08 11:10 | disposition home or self-care (01) | DRG 783 ==
LOC: OBCLINIC 21:30 → OB 23:10
PROVIDERS: ADMIT Obstetrics & Gynecology; ATTEND Obstetrics & Gynecology
CPT/HCPCS: 59025; 80307; 88302; 88307